=== PATIENT | female | born 1940 | race Caucasian/White ===

== ENCOUNTER → 2021-01-14 14:10 | Outpatient (CLI) | payer MEDICARE, SELFPAY ==
--- NOTE | 2021-01-14 14:10 | LES_PTH ---
PATIENT: Alea MAYA LOC: [facility] U#:[id number] AGE/SX: 84/F ROOM: RE01/14/[address]: Dr. Shon Bello MD : [id number] BED: DIS: SPEC #: [id number] RECD: 01/14/21 14:58 STATUS: JOHANNY INES #: [id number] JAQUELINE: 01/14/21 14:[address]: Shon Bello DEPT: SURGICAL PATHOLOGY RECD BY: Odette Green Tissues: Skin of face, NOS Procedures: Surgery Specimen Level IV HEADER OPERATION: Biopsy PRE-OP DIAGNOSIS: Lesion of cheek TISSUE SUBMITTED: Lesion of cheek MICROSCOPIC DIAGNOSIS Cheek lesion, biopsy: Squamous papilloma. ANTHONY:liliana 01/16/2021 MICROSCOPIC DESCRIPTION Slides are reviewed. GROSS DESCRIPTION Received in fixative is one container labeled with the patient's name and designated lesion of cheek. The specimen consists of a piece of painting mucosal tissue measuring 0.5 x 0.2 x 0.2 cm. The entire specimen is submitted in one cassette. / SJ:liliana 01/15/21 TC:1 CPT: 55585
== END ==
PROVIDERS: Visit Provider Otolaryngology
DX: D48.5 Neoplasm of uncertain behavior of skin (principal)
CPT/HCPCS: 88305